=== PATIENT | female | born 1995 | race Caucasian/White ===

== ENCOUNTER 2019-10-03 14:22 | Emergency (ER) | payer MEDICAID, OTHER ==
[~2019-10-03] VITALS: Ht 162.6 cm; Wt 84.4 kg
--- NOTE | 2019-10-03 14:28 | NUR ---
AMB TO BED 07 WITH STEADY GAIT
[2019-10-03 14:31] VITALS: BP 118/57
--- NOTE | 2019-10-03 14:42 | NUR ---
FLU SWAB PERFORMED AND SENT TO LAB.
--- NOTE | 2019-10-03 14:45 | NUR ---
24 Y/O F C/O COUGH, CONGESTION, N/V X 2 DAYS. PT HAS NOT TAKEN MEDICATION AT HOME FOR SYMPTOMS. VS STABLE, OXYGEN LEVEL 98% ROOM AIR. PT POSITIONED FOR COMFORT, FRIEND AT BEDSIDE. KATE
[2019-10-03 15:34] VITALS: BP 118/57
--- NOTE | 2019-10-03 15:35 | NUR ---
Patient discharged with v/s stable. Written and verbal after care instructions given and explained. Patient verbalized understanding. Ambulatory with steady gait. All questions addressed prior to discharge. Advised to follow up with PMD.
== END 2019-10-03 15:35 | disposition home or self-care (01) ==
LOC: MED 14:22
DX: O99.511 Diseases of the respiratory system complicating pregnancy, first trimester (principal); J06.9 Acute upper respiratory infection, unspecified
CPT/HCPCS: 81002; 81025; 87804; 99283

== ENCOUNTER 2020-01-27 07:49 | Emergency (ER) | payer MEDICAID ==
[~2020-01-27] VITALS: Ht 162.6 cm; Wt 87.1 kg
--- NOTE | 2020-01-27 07:54 | NUR ---
Patient ambulated to bed 7. RN evaluating patient at bedside.
[2020-01-27 07:56] VITALS: BP 115/71
--- NOTE | 2020-01-27 08:07 | NUR ---
19 WEEK PREG [id number] , LMP 08/21/19 PT PRESENTED IN ED C/O PAIN TO LOWER BACK . PT STATES PAIN STARTED X2 DAYS AGO AND IS NOW UNBEARABLE. PT STATES SHE HAS HAD SOMETHING SIMILAR WHEN SHE WAS 21 YO. RED INFLAMMED AREA NOTED IN LEFT GLUTEAL CREST. NO OPEN WOUND OR DRAINAGE NOTED. PT STATES SHE HAS TAKEN TYELNOL FOR PAIN. PT DENIES FEVER. PT RESTING IN LATERAL POSITION IN BED , DUE TO PAIN. SIDE RAILS X1.
--- NOTE | 2020-01-27 08:42 | NUR ---
Dr. Quiles is evaluating the patient at bedside.
[2020-01-27] MEDS ORDERED: LIDOCAINE MPF 1% 10 MG/ML VIAL INJ ONE (08:55)
--- NOTE | 2020-01-27 09:10 | NUR ---
ASSISTED DR. DE LA GARZA W/ I&D AT BEDSIDE.
[2020-01-27] MEDS ORDERED: ACETAMINOPHEN 325 MG TAB PO ONE (09:25)
--- NOTE | 2020-01-27 10:07 | NUR ---
L&D at bedside for monitoring.
[2020-01-27 10:09] LABS: APPEARANCE,URINE HAZY (CLEAR); BILIRUBIN,URINE NEGATIVE (NEGATIVE); BLOOD, URINE 3+ (NEGATIVE); COLOR,URINE YELLOW (YELLOW); LEUKOCYTE ESTERASE ,URINE 1+ (NEGATIVE); NITRITE, URINE NEGATIVE (NEGATIVE); UGLUCOSE NEGATIVE (NEGATIVE)
--- NOTE | 2020-01-27 10:17 | NUR ---
pt resting , lateral lying at bed side w/ monitor attached, side rails X1. Pt provided w/ sandwich and OJ.
[2020-01-27 11:08] LABS: URINE AMORPHOUS URATE 1+ /HPF (None Seen)
[2020-01-27 11:33] VITALS: BP 109/62
--- NOTE | 2020-01-27 11:34 | NUR ---
Patient discharged with v/s stable. Written and verbal after care instructions given and explained. Patient alert, oriented and verbalized understanding of instructions. Ambulatory with steady gait. All questions addressed prior to discharge. ID band removed. Patient advised to follow up with PMD. Rx of Macrodantin given. Patient educated on indication of medication including possible reaction and side effects. Opportunity to ask questions provided and answered.
== END 2020-01-27 11:34 | disposition home or self-care (01) ==
LOC: MED 07:49
DX: O99.712 Diseases of the skin and subcutaneous tissue complicating pregnancy, second trimester (principal); O23.42 Unspecified infection of urinary tract in pregnancy, second trimester; O26.891 Other specified pregnancy related conditions, first trimester; R10.9 Unspecified abdominal pain
CPT/HCPCS: 10060; 81001; 81025; 87086; 99284; J2001

== ENCOUNTER 2020-05-17 00:20 | Observation (INO) | payer MEDICAID, OTHER ==
[~2020-05-17] VITALS: Ht 162.6 cm; Wt 90.3 kg
[2020-05-17 01:23] VITALS: BP 118/68
== END 2020-05-17 01:15 | disposition home or self-care (01) ==
LOC: MLD 00:20
PROVIDERS: ADMIT Obstetrics & Gynecology; ATTEND Obstetrics & Gynecology
DX: O36.8130 Decreased fetal movements, third trimester, not applicable or unspecified (principal); O26.893 Other specified pregnancy related conditions, third trimester; R10.9 Unspecified abdominal pain; Z3A.38 38 weeks gestation of pregnancy
CPT/HCPCS: 59025; 81000; G0378